=== PATIENT | male | born 1975 | race Caucasian/White ===

== ENCOUNTER 2017-09-05 17:53 | Emergency (ER) | payer OTHER ==
[2017-09-05 18:07] VITALS: BMI 32.5
[2017-09-05] MEDS ORDERED: ACETAMINOPHEN 1000 MG/100 ML VIAL (NON FORMULARY) IVPB ONE (19:48)
[2017-09-05] MEDS ORDERED: ONDANSETRON 4 MG/2 ML VIAL IVPUSH ONE (19:48)
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
--- NOTE | 2017-09-05 20:04 | PDOC ---
*Physical Exam - Vital Signs Last Vital Signs Temp Pulse Resp BP Pulse Ox 98.0 F 86 18 150/87 100 09/05/17 18:02 09/05/17 18:02 09/05/17 18:02 09/05/17 18:02 09/05/17 18:02 ED Treatment Course - LABORATORY CBC & Chemistry Diagram: 09/05/17 20:25 09/05/17 20:25 Medical Decision Making - Medical Decision Making 09/05/17 20:04 agree with care from [facility] *DC/Admit/Observation/Transfer Diagnosis at time of Disposition: Concussion, Musculoskeletal pain - Discharge Dispostion Disposition: HOME - Referrals Referrals: Conrad Muñoz MD [Primary Care Provider] - Call tomorrow Benjamin Zambrano MD [Staff Physician] - 3 days Bal Hickey MD [Staff Physician] - - Patient Instructions Printed Discharge Instructions: Concussion, DI for Musculoskeletal Pain Additional Instructions: Take ibuprofen every 6 hours for pain Take Flexeril as prescribed for muscle spasms Do not operate machinery or drive after taking this medication Rest and relax as much as possible Follow-up with your doctor as soon as possible - Post Discharge Activity Forms/Work/School Notes: Back to Work
[2017-09-05] MEDS ORDERED: ONDANSETRON 4 MG/2 ML VIAL ONE (20:21)
[2017-09-05] MEDS ORDERED: ACETAMINOPHEN INJECTION 100 ML IVPB ONE (20:21)
[2017-09-05 20:42] LABS: BASO % 0.6 % (0-2.0); HEMATOCRIT 40.8 % (35.4-49); LYMPH % 25.8 % (8-40); MCH 29.6 pg (25.7-33.7); MCHC 34.4 g/dl (32.0-35.9); MEAN PLT VOLUME 8.6 fl (7.5-11.1); NEUT % 67.6 % (42.8-82.8); PLATELET COUNT 189 K/MM3 (134-434); RBC 4.74 M/mm3 (4.00-5.60); RDW 13.1 % (11.9-15.9); WHITE BLOOD COUNT 8.6 K/mm3 (4.0-10.0)
[2017-09-05 20:59] LABS: INR 1.07 (0.82-1.09); PROTHROMBIN TIME (PATIENT) 12.1 SEC (9.7-13.0)
[2017-09-05 21:01] LABS: ACTIVATED PTT 32.4 SECONDS (25.2-36.5)
[2017-09-05] MEDS ORDERED: KETOROLAC TROMETHAMINE 30 MG/1 ML VIAL IVPUSH ONE (22:27)
[2017-09-05] MEDS ORDERED: KETOROLAC TROMETHAMINE 30 MG/1 ML VIAL ONE (22:49)
[2017-09-05 23:18] VITALS: BP 131/75; PULSE 85; TEMP 98.7
== END 2017-09-05 23:18 | disposition home or self-care (01) ==
LOC: JER 17:53
PROC: 3E033GC Introduction of Other Therapeutic Substance into Peripheral Vein, Percutaneous Approach (ICD-10-PCS; principal; 2017-09-05)
PROC: 3E033NZ Introduction of Analgesics, Hypnotics, Sedatives into Peripheral Vein, Percutaneous Approach (ICD-10-PCS; 2017-09-05)
PROC: 3E0333Z Introduction of Anti-inflammatory into Peripheral Vein, Percutaneous Approach (ICD-10-PCS; 2017-09-05)
DX: S06.0X0A Concussion without loss of consciousness, initial encounter (principal); M54.2 Cervicalgia; M54.6 Pain in thoracic spine; V43.52XA Car driver injured in collision with other type car in traffic accident, initial encounter; Y92.414 Local residential or business street as the place of occurrence of the external cause; Y93.89 Activity, other specified; Y99.8 Other external cause status
CPT/HCPCS: 36415; 70450-TC; 71101-TC-RT-FY; 72125-TC; 72128-TC; 85025; 85610; 85730; 86850; 86900; 86901; 99282-25; J0131